=== PATIENT | male | born 1995 | race Two or more races ===

== ENCOUNTER 2024-11-22 23:54 | Emergency (ER) | payer OTHER ==
[~2024-11-22] VITALS: Ht 170.2 cm; Wt 78.0 kg
[2024-11-23 00:13] VITALS: TEMP 36.4; O2SAT 99
[2024-11-23] MEDS: DIPHENHYDRAMINE 12.5MG/5ML UDC PO ONE (01:08)
[2024-11-23] MEDS: KETOROLAC 15MG/ML VIAL IM ONE (01:09)
[2024-11-23] MEDS: METOCLOPRAMIDE HCL 10MG TABLET PO ONE (01:09)
[2024-11-23] MEDS ORDERED: CEPH500T MT (01:21)
[2024-11-23] MEDS ORDERED: NAPR-1176 MT (01:24)
[2024-11-23 01:51] VITALS: BP 114/60; PULSE 72; RESP 20; O2SAT 100
== END 2024-11-23 01:56 | disposition home or self-care (01) ==
LOC: ER 11-23 00:17
DX: R51.9 Headache, unspecified (principal); L70.0 Acne vulgaris
CPT/HCPCS: 96372; 99283; J8597; Q0163; J1885; Z7610

== ENCOUNTER 2025-01-06 00:50 | Emergency (ER) | payer OTHER ==
[~2025-01-06] VITALS: Ht 172.7 cm; Wt 60.0 kg
[~2025-01-06 00:50] MED LIST: CEPH500T MT; NAPR-1176 MT
[2025-01-06 01:08] VITALS: TEMP 36.9; O2SAT 100
[2025-01-06 01:50] LABS: BASOPHILS % 0.7 % (0.0-2.0); EOSINOPHILS % 1.6 % (0.0-5.0); HEMATOCRIT. 42.7 % (42.0-52.0); HEMOGLOBIN. 14.4 g/dL (14.0-18.0); LYMPHOCYTES % 32.0 % (20.0-50.0); MEAN PLATELET VOLUME 6.6 fl (7.4-10.4); MONOCYTES % 4.3 % (2.0-8.0); NEUTROPHILS % 61.4 % (40.0-76.0); PLATELET 313 x1000/uL (130-400); RED BLOOD CELL COUNT 5.06 mill/uL (4.7-6.1); RED CELL DISTRIBUTION WIDTH 13.1 % (11.6-14.6)
[2025-01-06 02:01] LABS: CREATININE 0.8 mg/dL (0.6-1.3)
[2025-01-06 02:02] LABS: UREA NITROGEN BLOOD 16 mg/dL (9-23)
[2025-01-06 03:15] LABS: ASPARTATE AMINOTRANSFERASE 14 IU/L (<34); BILIRUBIN DIRECT 0.2 mg/dL (<=3.0); BILIRUBIN TOTAL 0.6 mg/dL (0.1-1.0); PROTEIN TOTAL 7.2 g/dL (6.0-8.3)
[2025-01-06] MEDS: ONDANSETRON HCL 4MG TABLET PO ONE (03:36)
[2025-01-06] MEDS: FAMOTIDINE 20MG TABLET PO ONE (03:36)
[2025-01-06] MEDS: MAGNESIUM/ALUMINUM HYDROXIDE/SIMETHICONE 30ML UDC PO ONE (03:36)
[2025-01-06] MEDS ORDERED: MAG-55 MT (04:17)
[2025-01-06 05:44] VITALS: BP 119/68; PULSE 63; RESP 13; O2SAT 98
[2025-01-06 06:30] LABS: CLARITY URINE CLEAR (CLEAR); COLOR URINE YELLOW (YELLOW); PH URINE 5.5 (4.5-8.0); SPECIFIC GRAVITY URINE 1.028 (1.005-1.030)
[2025-01-06 06:31] LABS: GLUCOSE URINE NEGATIVE (NEGATIVE); KETONES URINE TRACE (NEGATIVE); NITRITE URINE NEGATIVE (NEGATIVE); OCCULT BLOOD URINE NEGATIVE (NEGATIVE); PROTEIN URINE NEGATIVE (NEGATIVE); UROBILINOGEN URINE 1.0 E.U./dL (0.2-1.0)
[2025-01-06 06:32] LABS: LEUKOCYTE ESTERASE URINE NEGATIVE (NEGATIVE)
== END 2025-01-06 05:46 | disposition home or self-care (01) ==
LOC: ER 00:50
DX: K29.70 Gastritis, unspecified, without bleeding (principal)
CPT/HCPCS: 99284; 80076; 80048; 81003; 83690; 85025; 36415; 74018; Q0162

== ENCOUNTER 2025-02-24 17:29 | Emergency (ER) | payer OTHER ==
[~2025-02-24] VITALS: Ht 172.7 cm; Wt 75.0 kg
[~2025-02-24 17:29] MED LIST changes: +MAG-55 MT
[2025-02-24 17:43] VITALS: BP 109/63; TEMP 36.8; O2SAT 97
[2025-02-24 17:45] VITALS: PULSE 94; RESP 16; O2SAT 99
[2025-02-24] MEDS: IBUPROFEN 600MG TABLET PO ONE (19:20)
[2025-02-24 19:26] LABS: CLARITY URINE CLOUDY (CLEAR); COLOR URINE YELLOW (YELLOW); GLUCOSE URINE NEGATIVE (NEGATIVE); KETONES URINE NEGATIVE (NEGATIVE); LEUKOCYTE ESTERASE URINE NEGATIVE (NEGATIVE); NITRITE URINE NEGATIVE (NEGATIVE); OCCULT BLOOD URINE NEGATIVE (NEGATIVE); PH URINE 8.0 (4.5-8.0); PROTEIN URINE NEGATIVE (NEGATIVE); SPECIFIC GRAVITY URINE 1.022 (1.005-1.030); UROBILINOGEN URINE 1.0 E.U./dL (0.2-1.0)
[2025-02-24 20:01] LABS: BACTERIA URINE NONE SEEN; RBC URINE NONE SEEN /hpf (0-2); SQUAMOUS EPITHELIAL CELL URINE NONE SEEN /lpf (RARE/1+); WBC URINE NONE SEEN /hpf (0-2); YEAST URINE NONE SEEN
[2025-02-24 20:40] LABS: BASOPHILS % 0.6 % (0.0-2.0); EOSINOPHILS % 1.7 % (0.0-5.0); HEMATOCRIT. 43.6 % (42.0-52.0); HEMOGLOBIN. 14.5 g/dL (14.0-18.0); LYMPHOCYTES % 29.9 % (20.0-50.0); MEAN PLATELET VOLUME 6.7 fl (7.4-10.4); MONOCYTES % 5.3 % (2.0-8.0); NEUTROPHILS % 62.5 % (40.0-76.0); PLATELET 238 x1000/uL (130-400); RED BLOOD CELL COUNT 5.12 mill/uL (4.7-6.1); RED CELL DISTRIBUTION WIDTH 13.3 % (11.6-14.6)
[2025-02-24 20:55] LABS: CREATININE 0.9 mg/dL (0.6-1.3); UREA NITROGEN BLOOD 19 mg/dL (9-23)
[2025-02-24 20:57] LABS: ASPARTATE AMINOTRANSFERASE 15 IU/L (<34); BILIRUBIN DIRECT 0.2 mg/dL (<=3.0); BILIRUBIN TOTAL 0.6 mg/dL (0.1-1.0); PROTEIN TOTAL 7.2 g/dL (6.0-8.3)
== END 2025-02-24 21:59 | disposition home or self-care (01) ==
LOC: ER 17:29
DX: M54.50 Low back pain, unspecified (principal); L70.9 Acne, unspecified; Z79.1 Long term (current) use of non-steroidal anti-inflammatories (NSAID); Z79.899 Other long term (current) drug therapy
CPT/HCPCS: 36415; 80048; 80076; 81003; 85025; 99283